=== PATIENT | female | born 1990 | race Caucasian/White ===

== ENCOUNTER → 2016-07-03 | Outpatient (CLI) | payer OTHER ==
[~2016-07-03] MED LIST: FERR1TAB13 PO; FLUO20CA35 PO; PRENTAB26 PO
== END | disposition home or self-care (01) ==
LOC: C.LABSPEC 11:58
PROVIDERS: ATTEND Obstetrics & Gynecology
DX: O09.293 Supervision of pregnancy with other poor reproductive or obstetric history, third trimester (principal)

== ENCOUNTER 2016-07-31 17:16 | Inpatient (IN) | payer OTHER ==
[~2016-07-31] VITALS: Ht 175.3 cm; Wt 91.0 kg
[2016-07-31] MEDS ORDERED: LACTATED RINGER'S 1000ML 1,000 ML IV PRN (18:47)
[2016-07-31] MEDS ORDERED: LACTATED RINGER'S 1000ML 500 ML IV PRN ×2 (18:47→22:29)
[2016-07-31] MEDS ORDERED: OXYTOCIN 30 UNITS/500ML NSS IV PRN (19:00)
[2016-07-31 19:09] VITALS: Ht 175.3 cm; Wt 91.0 kg
[2016-07-31] MEDS ORDERED: PRENTAB26 PO (19:11)
[2016-07-31] MEDS ORDERED: FLUO20CA35 PO (19:11)
[2016-07-31] MEDS ORDERED: PENICILLIN G POTASSIUM IV 6 MU in DEXTROSE 5% 250ML 250 ML IV ONE (19:15)
[2016-07-31 19:16] LABS: MEAN CELL VOLUME 81.5 fL (80-100); MEAN CORPUSCULAR HEMOGLOBIN 26.4 pg (25-34); MEAN CORPUSCULAR HGB CONC 32.4 g/dl (32-36); PLATELET COUNT 232 K/uL (130-400); RED BLOOD COUNT 4.05 M/uL (4.2-5.4); WHITE BLOOD COUNT 7.56 K/uL (4.8-10.8)
[2016-07-31] MEDS: LACTATED RINGER'S 1000ML 1,000 ML IV SCH (19:16)
[2016-07-31] MEDS ORDERED: FENTANYL 2MCG/ML ROPIV 1.25MG/ML 100ML BAG EPI ONE (21:19)
[2016-07-31] MEDS ORDERED: BUPIVACAINE 0.25% 30 ML VIAL ONE (21:19)
[2016-07-31] MEDS ORDERED: FENTANYL CITRATE INJ 50 MCG/1 ML 2 ML VIAL ONE (21:19)
[2016-07-31] MEDS ORDERED: EpHEDrine SULFATE INJ 50 MG/ML AMP ONE (21:19)
[2016-07-31] MEDS ORDERED: EpHEDrine SULFATE INJ 50 MG/ML AMP IV PRN (22:30)
[2016-07-31] MEDS ORDERED: NALOXONE HCL INJ 0.4 MG/1 ML VIAL/CARP IV PRN (22:30)
[2016-07-31] MEDS: PENICILLIN G POTASSIUM IV 3 MU in DEXTROSE 5% 100ML 100 ML IV PRN (22:49)
[2016-07-31] MEDS: FENTANYL 2MCG/ML ROPIV 1.25MG/ML 100ML BAG EPI PRN (23:49)
[2016-08-01] MEDS: LACTATED RINGER'S 1000ML 1,000 ML IV SCH (02:13)
[2016-08-01] MEDS: PENICILLIN G POTASSIUM IV 3 MU in DEXTROSE 5% 100ML 100 ML IV PRN (02:58)
[2016-08-01] MEDS: FENTANYL 2MCG/ML ROPIV 1.25MG/ML 100ML BAG EPI PRN (03:10)
[2016-08-01] MEDS ORDERED: MISOPROSTOL 200 MCG TAB ONE (05:25)
[2016-08-01] MEDS ORDERED: OXYTOCIN 30 UNITS/500ML NSS IV PRN (05:45)
[2016-08-01] MEDS ORDERED: LANOLIN OINT EXT PRN ×2 (05:45)
[2016-08-01] MEDS ORDERED: ACETAMINOPHEN/CODEINE 300/30MG TAB PO PRN ×2 (05:45)
[2016-08-01] MEDS ORDERED: HYDROCORTISONE ACETATE 25 MG SUPP PR PRN (05:45)
[2016-08-01] MEDS ORDERED: MISOPROSTOL 200 MCG TAB PR ONE (05:45)
[2016-08-01] MEDS ORDERED: DIPHTHERIA/TETANUS/PERTUSSIS 0.5 ML SYR/VIAL IM. ONE (05:45)
[2016-08-01] MEDS: CEFAZOLIN IV 2,000 MG in DEXTROSE 5% 50ML 50 ML IV SCH ×3 (05:58→21:43)
[2016-08-01] MEDS ORDERED: OXYTOCIN INJ 20 UNITS in LACTATED RINGER'S 1000ML 1,000 ML IV SCH (06:00)
[2016-08-01] MEDS: IBUPROFEN 600 MG TAB PO PRN ×4 (06:16→22:22)
--- NOTE | 2016-08-01 07:35 | Anesthesia Procedure Note ---
Anesthesia Epidural Removal Nt Date & Time Aug 01, 2016 at 07:35 Vital Signs Pain Intensity: 3.0 Notes Mental Status: alert / awake / arousable, participated in evaluation Nausea / Vomiting: adequately controlled Pain: adequately controlled Airway Patency, RR, SpO2: stable & adequate BP & HR: stable & adequate Hydration State: stable & adequate Neuraxial Anesthesia: was administered, sensory block is resolved Anesthetic Complications: no major complications apparent, pt satisfied with anesthetic care Epidural: removed without complications, with tip intact
--- NOTE | 2016-08-01 07:45 | DELIVERY SUMMARY ---
DATE OF OPERATION: 07/31/2016 DELIVERY NOTE: The patient dilated to complete and pushed to deliver a viable female infant, Apgars 8 and 9 via over second-degree perineal laceration. Mouth and nose bulb suctioned at the perineum and shoulders and body delivered with ease with gentle downward traction. The cried at . Presence of the meconium was noted. Cord was clamped and cut and infant to the warmer for drying and attention. Placenta was delivered spontaneously and intact 3-vessel cord. Hemostasis was inadequate with dilute Pitocin. For that reason, bimanual massage was begun and the uterus was swept x2 for no retained products of conception. After continued bleeding, 800 mcg for rectal Cytotec was administered. The bladder was drained for clear yellow urine of approximately 150 mL. The bleeding began to slow. The laceration was repaired in the usual fashion using 3-0 Vicryl. Cord blood and cord gases were obtained. EBL 600 mL. Mother and baby stable in recovery. I attest to the content of the Intraoperative Record and any orders documented therein. Any exceptions are noted below. TINOD
[2016-08-01 08:10] VITALS: BP 131/66; PULSE 90; TEMP 37.1
[2016-08-01] MEDS: DOCUSATE SODIUM 100 MG CAP PO SCH ×2 (08:49→19:41)
[2016-08-01] MEDS: SUPERCREAM 0.870 % 15GM JAR EXT PRN (11:01)
[2016-08-01] MEDS: BENZOCAINE 20% AER SPR 82.5 GM CAN EXT PRN (11:02)
[2016-08-01 13:00] VITALS: BP 117/67; PULSE 99; TEMP 36.9; O2SAT 100
[2016-08-01] MEDS ORDERED: FLUOXETINE HCL 20 MG CAP PO ONE (13:31)
[2016-08-01 17:00] VITALS: BP 127/87; PULSE 96; TEMP 36.8; O2SAT 99
[2016-08-01 19:30] VITALS: BP 121/79; PULSE 99; TEMP 36.7; O2SAT 97
[2016-08-01] MEDS: ACETAMINOPHEN 325 MG TAB PO PRN (19:42)
[2016-08-01 23:20] VITALS: BP 125/83; PULSE 91; TEMP 36.7; O2SAT 97
[2016-08-02 03:25] VITALS: BP 122/81; PULSE 102; TEMP 36.6; O2SAT 98
[2016-08-02 06:44] LABS: HEMATOCRIT 24.6 % (37-47)
--- NOTE | 2016-08-02 06:57 | Progress Note ---
Subjective Aug 02, 2016. Subjective conversation w/ patient Ambulation: ambulating normally Voiding: no voiding problems Passing Gas: Yes Diet Tolerance: Regular Diet Lochia: Small Feeding Type: Breast Feeding Review of Systems Constitutional: No chills, No fever Respiratory: No cough, No shortness of breath Cardiac: No chest pain Abdomen: No nausea, No pain Objective Vital Signs Date Time Temp Pulse Resp B/P Pulse Ox O2 Delivery O2 Flow Rate FiO2 08/02/16 03:25 36.6 102 16 122/81 98 Room Air 08/01/16 23:20 36.7 91 16 125/83 97 Room Air 08/01/16 23:20 97 Room Air 08/01/16 19:30 36.7 99 16 121/79 97 Room Air 08/01/16 17:00 36.8 96 16 127/87 99 Room Air 08/01/16 17:00 99 Room Air 08/01/16 13:00 36.9 99 16 117/67 100 Room Air 08/01/16 08:10 37.1 90 18 131/66 Room Air 08/01/16 08:10 Room Air Physical Exam General Appearance: WELL-APPEARING Respiratory/Chest: lungs clear Cardiovascular: regular rate, rhythm Abdomen: normal bowel sounds Fundus: Firm, Non-Tender, Relation to Umbilicus (2 cm below umbilicus) Laboratory Results Last 24 Hours Test 08/02/16 06:30 Hemoglobin 8.2 g/dL Hematocrit 24.6 % Assessment and Plan Post- Day#: 1 Continue Routine Care: 26 year old female day 1 post Group B Strep positive, Received antibiotics Analgesia PRN, Escalate diet, Encourage ambulation CONTINUE POST CARE Resident Physician Supervision Note: I interviewed and examined the patient. Discussed with Dr. Lakhani and agree with findings and plan as documented in the note. Any exceptions or clarifications are listed here: [None] Documented By: Dov Padilla
[2016-08-02 08:00] VITALS: BP 127/84; PULSE 90; TEMP 36.9
[2016-08-02] MEDS: DOCUSATE SODIUM 100 MG CAP PO SCH ×2 (08:16→20:00)
[2016-08-02] MEDS: FLUOXETINE HCL 20 MG CAP PO SCH (08:16)
[2016-08-02 12:50] VITALS: BP 133/84; PULSE 115; TEMP 36.8; O2SAT 99
[2016-08-02] MEDS: IBUPROFEN 600 MG TAB PO PRN ×2 (13:08→23:30)
[2016-08-02] MEDS: ACETAMINOPHEN 325 MG TAB PO PRN (16:19)
[2016-08-02 16:30] VITALS: BP 125/77; PULSE 101; TEMP 36.7; O2SAT 97; O2SAT 98
[2016-08-02] MEDS: BENZOCAINE 20% AER SPR 82.5 GM CAN EXT PRN (23:32)
[2016-08-02 23:35] VITALS: BP 139/86; PULSE 93; TEMP 36.6
[2016-08-03] MEDS: FLUOXETINE HCL 20 MG CAP PO SCH (07:49)
[2016-08-03] MEDS: DOCUSATE SODIUM 100 MG CAP PO SCH (07:49)
--- NOTE | 2016-08-03 07:52 | Progress Note ---
Subjective Aug 03, 2016. Subjective conversation w/ patient, physical exam Ambulation: ambulating normally Voiding: no voiding problems Passing Gas: Yes Diet Tolerance: Regular Diet Lochia: Small Feeding Type: Breast Feeding Pain: 1 Review of Systems Constitutional: No chills, No fever Respiratory: No cough, No shortness of breath Cardiac: No chest pain, No palpitations Abdomen: No nausea, No pain, No vomiting Objective Vital Signs Date Time Temp Pulse Resp B/P Pulse Ox O2 Delivery O2 Flow Rate FiO2 08/02/16 23:35 36.6 93 16 139/86 Room Air 08/02/16 23:35 Room Air 08/02/16 16:30 36.7 101 20 125/77 97 Room Air 08/02/16 16:30 98 Room Air 08/02/16 12:50 36.8 115 20 133/84 99 Room Air 08/02/16 08:00 Room Air 08/02/16 08:00 36.9 90 18 127/84 Room Air Physical Exam General Appearance: WELL-APPEARING Respiratory/Chest: chest non-tender, lungs clear Cardiovascular: regular rate, rhythm, no murmur Abdomen: normal bowel sounds Fundus: Firm, Non-Tender, Relation to Umbilicus (2 cm above and left lateral to umbilicus) Extremities: normal range of motion, non-tender Assessment and Plan Post- Day#: 2 Continue Routine Care: 26 F s/p Day 2 - Hgb reviewed 8.2 today (will supplement with iron) - Blood type: A+, GBS + (received AB), rubella immune - Pt doing well clinically - Encourage ambulation, monitor and control pain with motrin PRN, Resume regular diet, monitor lochia - Encourage breast feeding - Patient counselled on d/c instructions - DISCHARGE TODAY
[2016-08-03] MEDS ORDERED: FERR1TAB13 PO (07:56)
--- NOTE | 2016-08-03 07:57 | Discharge Instructions ---
Discharge Instructions Admission Reason for Admission: Induction Discharge Discharge Diagnosis / Problem: Spontaneous Vaginal Delivery Discharge Goals Goal(s): Routine recovery after delivery Medications Continue Dispensed Medications: supercream, dermaplast, tucks, lansinoh Activity Recommendations Activity Limitations: per Instructions/Follow-up section . Instructions / Follow-Up Instructions / Follow-Up ACTIVITY RECOMMENDATIONS: * Gradual return to full activity over the next 2-3 weeks. * No lifting - nothing heavier than baby over the next 2-3 weeks. * Do not engage in vigorous exercise, sexual activity or sports until cleared by your physician. * Do not drive or operate any motorized equipment until cleared by your physician. * You may shower/bathe daily. MEDICATIONS: For discomfort or pain, you may use Acetaminophen (Tylenol), Ibuprofen (Advil), or Naproxen (Aleve) following the package directions. For constipation you may use Colace following the package directions. BREAST CARE: If you are not breast feeding: * Wear a supportive bra 24 hours a day for one to two weeks. * Avoid stimulating your breasts and nipples as much as possible during the first few weeks after delivery. * When taking a shower, have the warm water hit your back, not breasts. * When your breasts feel full, apply ice packs. Usually three to four times a day helps ease the discomfort. * Take a mild pain medication (Tylenol / Motrin) when you are uncomfortable. If breast feeding: * Use breast milk to lubricate nipples. Lansinoh cream may be used for sore nipples. You do not need to remove cream prior to breast feeding. If using a different brand of cream, check the label for directions regarding removal of cream prior to nursing. * Wear a supportive bra. * If having problems with breasts or breast feeding, call a product safety consultant or your health care provider. EPISIOTOMY CARE: After delivery, if you have an episiotomy (stitches), the following steps will ease discomfort and aid healing. * For the first 24 hours after delivery, place ice packs next to your episiotomy to help reduce swelling. * After the first 24 hour-period, sitz baths, either portable or in the tub, are suggested. A shower with a shower arm sprayed over the episiotomy may be comforting. * Tracy care should be done after each voiding and bowel movement. Squirt warm water from a plastic bottle over the perineum (region of the body between the anus and urinary opening) and pat dry. * Use Dermoplast to ease discomfort. Shake container. [place] directly over the episiotomy. Place a Tucks on a clean sanitary pad next to your episiotomy. SPECIAL CARE INSTRUCTIONS: When you are discharged from the hospital, it is important for you to follow the instructions listed below: * During the first week at home, you should be able to care for yourself and your baby. In addition, the usual light household activities are encouraged. * Limit your activities to the way you feel. Do not try to clean the house or move furniture. Be sensible. * If you actively engage in sports and have done so up until the time of your delivery, you may resume these activities as soon as you feel able. This may take up to one month or even longer. Use good judgment. * Continue to take your vitamins for at least six weeks after the of your baby. * Your diet need not be limited unless you were on a special diet before your delivery. Breast-feeding mothers need around 2500 calories per day and at least 64-80 ounces of fluid per day (8 to 10 glasses). * You should eat foods from the four major food groups. Crash diets or fad diets are to be avoided. Eating lean meats, fresh fruits and vegetables, low-fat dairy products, high fiber foods and a regular exercise program, will help you get back to your pre- weight without putting your health at risk. * Constipation is sometimes a problem after delivery. Take a mild laxative as needed. If breast feeding, Milk of Magnesia is acceptable to use. You may use a suppository or Fleets enema if no episiotomy. * A daily shower or tub bath is suggested. Be sure to thoroughly and gently dry the perineum. * A bloody vaginal discharge will usually continue until around four weeks post . A small amount of bleeding may continue for as long as six weeks. Vaginal discharge changes from the bright red bleeding after delivery to pink then brownish and finally yellowish-pink before becoming white and disappearing. * Bleeding may increase with activity. Your first period may come in 4-8 weeks. If you are breast feeding, your period may be delayed even longer. * Hurt (sex) can begin whenever both you and your partner feel comfortable and do not have any form of genital infection. It is recommended that you wait at least six weeks for internal and external healing to occur. If you have questions, please talk to your health care practitioner. A condom should be used to prevent infection and . * Foreplay, gentle intercourse and lubrication is very important the first several times to prevent pain. A water-based lubricant such as K-Y jelly or Astroglide may be used. * If you have RH negative blood and your baby is RH positive, you will receive RHOGAM by injection prior to discharge. The nurse will give you a card to keep with you that has the date and place that you received RHOGAM after delivery. * During your care, you had a Rubella screen done to check for the presence of rubella antibodies in your blood. If your test was negative, you will receive a Rubella vaccine prior to discharge. This vaccine may cause a fever, soreness at the injection site and flu-like symptoms. If these symptoms persist, notify your health care practitioner. is not advised for one month after a Rubella vaccine. * Verbalizes understanding of car seat law as reviewed with patient nursing. * Car Seat hand-out given and reviewed with patient by nursing. * Shaken baby information reviewed with patient by nursing. Call you doctor if: * Heavy bleeding (saturating several pads an hour) or passing clots the size of your fist. * A fever >101 degrees F (38.3 degrees C) on two occasions four hours apart and /or chills. * Unusual pain in the pelvic or vaginal areas. * "Baby Blues" lasting longer than two weeks. If you have any questions or concerns, call your health care practitioner at . FOLLOW UP VISIT: * Please call the office at to schedule a 6 week examination. It is important you keep this appointment. It is important for you to make arrangements for either yearly or twice yearly check-ups thereafter. Current Hospital Diet Patient's current hospital diet: Regular OB Diet Discharge Diet Recommended Diet: Regular OB Diet Pending Studies Studies pending at discharge: no Medical Emergencies . Who to Call and When: Medical Emergencies: If at any time you feel your situation is an emergency, please call 911 immediately. . Non-Emergent Contact Non-Emergency issues call your: Primary Care Provider, Project/Production Manager Imaging . . "Provider Documentation" section prepared by Mariusz Lakhani. VTE Core Measure Inpt VTE Proph given/why not?: Treatment not indicated
[2016-08-03 08:00] VITALS: BP 127/78; PULSE 98; TEMP 36.6; O2SAT 96
[2016-08-03] MEDS: IBUPROFEN 600 MG TAB PO PRN (11:13)
[2016-08-03] MEDS: SUPERCREAM 0.870 % 15GM JAR EXT PRN (12:38)
[2016-08-03] MEDS: BENZOCAINE 20% AER SPR 82.5 GM CAN EXT PRN (12:38)
[2016-08-03 16:00] VITALS: BP_DIAS 78; PULSE 98; TEMP 36.6
== END 2016-08-03 16:00 | disposition home or self-care (01) | DRG 775 ==
LOC: C.LD 17:16 → C.OBG 08-01 08:30
PROVIDERS: ADMIT Obstetrics & Gynecology; ATTEND Obstetrics & Gynecology
PROC: 0KQM0ZZ Repair Perineum Muscle, Open Approach (ICD-10-PCS; principal; 2016-08-01)
PROC: 10E0XZZ Delivery of Products of Conception, External Approach (ICD-10-PCS; 2016-08-01)
DX: O70.1 Second degree perineal laceration during delivery (principal); Z37.0 Single live birth; O99.820 Streptococcus B carrier state complicating pregnancy; Z3A.40 40 weeks gestation of pregnancy

== ENCOUNTER → 2016-07-31 | Outpatient (CLI) | payer OTHER ==
--- NOTE | 2016-07-31 16:50 | DIAGNOSTIC IMAGING REPORT ---
biophysical profile BIO PROF W/O NST -SINGLE CLINICAL HISTORY: O28.1 nonreactive stress test TECHNIQUE: Ultrasound COMPARISON STUDY: None FINDINGS: Biophysical profile 4 out of possible 8. Amniotic fluid index is 13 cm. heart rate 146 bpm. Movement is noted. Tone and breathing are not appreciated. IMPRESSION: Biophysical profile 4 out of a possible 8 Electronically signed by: Kofi Ureña M.D. 07/31/2016 4:49 PM Dictated Date/Time: 07/31/2016 4:47 PM
== END | disposition home or self-care (01) ==
LOC: C.ULTR 15:45
PROVIDERS: ATTEND Obstetrics & Gynecology
DX: O28.1 Abnormal biochemical finding on antenatal screening of mother (principal); O28.8 Other abnormal findings on antenatal screening of mother; Z3A.00 Weeks of gestation of pregnancy not specified

== ENCOUNTER → 2016-09-10 | Outpatient (CLI) | payer OTHER | END | disposition home or self-care (01) | LOC: C.PAPS 15:13 | PROVIDERS: ATTEND Obstetrics & Gynecology | DX: Z12.4 Encounter for screening for malignant neoplasm of cervix (principal) ==

== ENCOUNTER → 2016-12-16 | Outpatient (CLI) | payer OTHER ==
[2016-12-16 18:43] LABS: BASO % 0.3 %; BASO ABS # 0.02 K/uL (0-0.2); COMPLETE YES; EOS % 1.7 %; HEMATOCRIT 40.4 % (37-47); IG% 0.2 %; LYMPH % 25.9 %; LYMPH ABS # 1.64 K/uL (1.2-3.4); MEAN CELL VOLUME 85.1 fL (80-100); MEAN CORPUSCULAR HEMOGLOBIN 29.1 pg (25-34); MEAN CORPUSCULAR HGB CONC 34.2 g/dl (32-36); MEAN PLATELET VOLUME 10.1 fL (7.4-10.4); MONO % 5.2 %; NEUT % 66.7 %; PLATELET COUNT 244 K/uL (130-400); RED BLOOD COUNT 4.75 M/uL (4.2-5.4); WHITE BLOOD COUNT 6.32 K/uL (4.8-10.8)
[2016-12-16 19:09] LABS: ALT/SGPT 16 U/L (12-78); BLOOD UREA NITROGEN 12 mg/dl (7-18); BUN/CREATININE RATIO 20.9 (10-20); C-REACTIVE PROTEIN < 0.29 mg/dl (0-0.29); CALCIUM 8.8 mg/dl (8.5-10.1); CARBON DIOXIDE 27 mmol/L (21-32); CHLORIDE 107 mmol/L (98-107); CREATININE 0.56 mg/dl (0.60-1.20); GLUCOSE 97 mg/dl (70-99); SODIUM 140 mmol/L (136-145)
[2016-12-16 19:19] LABS: ALKALINE PHOSPHATASE 161 U/L (45-117); AST/SGOT 14 U/L (15-37); RHEUMATOID FACTOR < 10.0 U/mL (0-15)
[2016-12-16 19:32] LABS: LYME DISEASE AB IGG NEG (NEG); LYME DISEASE AB IGM NEG (NEG)
--- NOTE | 2016-12-20 10:43 | CODING QUERY MEDICAL NECESSITY ---
CQSUPPORTING DIAGNOSIS NEEDED A supporting diagnosis is required for the test/procedure performed on this patient in order for us to be reimbursed by the patient's insurance. Please provide a supporting diagnosis for the following test/procedure listed below next to the test name along with your signature. *If there is no additional diagnosis for this patient that would support the following test/procedure please document that below next to the test/procedure. Test(s)/Procedure(s) that require a supporting diagnosis: DOS 12/16/16 VITAMIN D TEST Provider Signature: Date: Thank you Raeann Spann Health Information Management Once completed, please kindly fax back to [phone] For questions please call [phone]
== END | disposition home or self-care (01) ==
LOC: C.LAB 17:55
PROVIDERS: ATTEND Nurse Practitioner Family
DX: M25.50 Pain in unspecified joint (principal)

== ENCOUNTER → 2017-01-02 | Outpatient (CLI) | payer OTHER | END | disposition home or self-care (01) | LOC: C.LAB 13:50 | PROVIDERS: ATTEND Family Medicine | DX: M79.641 Pain in right hand (principal); M25.50 Pain in unspecified joint ==

== ENCOUNTER → 2017-01-02 | Outpatient (CLI) | payer OTHER ==
--- NOTE | 2017-01-02 09:04 | DIAGNOSTIC IMAGING REPORT ---
RIGHT HAND MIN 3 VIEWS CLINICAL HISTORY: Right hand pain. Polyarthralgia. COMPARISON: None. DISCUSSION: The bony mineralization appears normal. No fractures or dislocations are visualized. There are no erosive or destructive changes. IMPRESSION: 1. No fractures identified 2. No evidence of erosive disease. Electronically signed by: Albert Mix M.D. 01/02/2017 9:03 AM Dictated Date/Time: 01/02/2017 9:02 AM
--- NOTE | 2017-01-02 09:05 | DIAGNOSTIC IMAGING REPORT ---
LEFT HAND MIN 3 VIEWS CLINICAL HISTORY: Left hand pain COMPARISON: None. DISCUSSION: No fractures are visualized. There are no erosive or destructive changes. IMPRESSION: No evidence of fracture. No evidence of erosive disease. Electronically signed by: Albert Mix M.D. 01/02/2017 9:04 AM Dictated Date/Time: 01/02/2017 9:03 AM
== END | disposition home or self-care (01) ==
LOC: C.RDSM 08:55
PROVIDERS: ATTEND Family Medicine
DX: M79.641 Pain in right hand (principal); M25.50 Pain in unspecified joint

== ENCOUNTER 2018-11-18 03:32 | Inpatient (IN) ==
[2018-11-18] MEDS ORDERED: OXYTOCIN 30 UNITS/500 ML BAG IV PRN ×2 (04:00→08:31)
[2018-11-18] MEDS ORDERED: PENICILLIN G POTASSIUM 6 MU in DEXTROSE 5% 250 ML IV STA (04:04)
[2018-11-18] MEDS ORDERED: PENICILLIN G POTASSIUM 3 MU in DEXTROSE 5% 100 ML IV PRN (04:04)
[2018-11-18] MEDS: LACTATED RINGER'S 1,000 ML IV PRN ×2 (04:15→05:44)
[2018-11-18] MEDS ORDERED: ePHEDrine sulfate 50 MG/ML AMP ONE (04:19)
[2018-11-18] MEDS ORDERED: BUPIVACAINE 0.25% 30 ML VIAL ONE (04:19)
[2018-11-18] MEDS ORDERED: fentaNYL citrate 100 MCG/2 ML VIAL ONE (04:20)
[2018-11-18] MEDS ORDERED: fentaNYL 2MCG/ML ROPIV 1.25MG/ML 100 ML BAG EPI ONE (04:20)
[2018-11-18 04:30] LABS: Hematocrit (blood only) 34.6 % (37-47); Hemoglobin 11.7 g/dL (12.0-16.0); Mean Platelet Volume 9.9 fL (7.4-10.4); Platelet Count 190 K/uL (130-400); RDW Coefficient of Variation 15.2 % (11.5-14.5); RDW Standard Deviation 46.4 fL (36.4-46.3); Red Blood Count 4.12 M/uL (4.2-5.4); White Blood Count 6.54 K/uL (4.8-10.8)
[2018-11-18 04:31] LABS: Mean Corpuscular Hgb Conc 33.8 g/dL (32-36)
--- NOTE | 2018-11-18 05:16 | Anesthesiology Consultation ---
Date of Service November 18, 2018 Assessment & Plan Chart Review Chart Review: Acceptable Risk for Labor Epidural Consults Requested none History Height/Weight Height: 5 ft 9 in Weight: 86.183 kg Allergies Allergy/AdvReac Type Severity Reaction Status Date / Time milk AdvReac Unknown GI SYMPTOMS Verified 11/17/18 00:43 Medications Home Medications Medication Instructions Recorded Confirmed Last Taken ferrous fumarate-vitamin C 1 tab PO DAILY 11/18/18 11/18/18 11/17/18 fluoxetine 20 mg PO DAILY 11/18/18 11/18/18 11/17/18 vit-iron fum-folic ac 1 tab PO DAILY 11/18/18 11/18/18 11/17/18 [ Vitamin] Active Medications Generic Name Dose Route Start Last Admin Trade Name Freq PRN Reason Stop Dose Admin Lactated Ringer's 1,000 mls @ 125 mls/hr 11/18/18 04:00 11/18/18 04:15 Lr IV 11/20/18 03:59 999 mls/hr .Q8H PRN Administration L&D Protocol Protocol Past Medical History Medical History Anxiety and depression taking prozac H/O wisdom tooth extraction at age 16 Past Family History Family History Grandmother (Paternal) Diabetes Grandmother (Maternal) Diabetes Grandmother (Paternal) Myocardial infarction Past Surgical History Surgical History History of cholecystectomy 12/2017 Social History Smoking Status: Never smoker Hx Alcohol Use: No Hx Substance Use: No Physical Exam Vital Signs Last Vital Signs Temp 36.8 C 11/18/18 03:48 Pulse 93 H 11/18/18 05:14 Resp 18 11/18/18 03:48 BP 120/69 11/18/18 05:14 Pulse Ox 97 11/18/18 05:10
[2018-11-18] MEDS ORDERED: DiphenhydrAMINE HCL 50 MG/ML VIAL IV PRN (05:19)
[2018-11-18] MEDS ORDERED: ePHEDrine sulfate 50 MG/ML AMP IV PRN (05:19)
[2018-11-18] MEDS ORDERED: fentaNYL 2MCG/ML ROPIV 1.25MG/ML 100 ML BAG EPI PRN (05:19)
[2018-11-18] MEDS ORDERED: NALOXONE HCL 0.4 MG/1 ML VIAL/CARP IV PRN (05:19)
[2018-11-18] MEDS ORDERED: NALBUPHINE HCL INJ 10 MG/ML AMP IV PRN (05:19)
[2018-11-18] MEDS ORDERED: NALOXONE HCL 1 MG in SODIUM CHLORIDE 0.9% 1000ML 1,000 ML IV PRN (05:19)
--- NOTE | 2018-11-18 06:11 | History & Physical Report ---
Date of Service November 18, 2018 Assessment & Plan (1) Supervision of normal intrauterine in multigravida in [facility]: -Patient in active labor -Tracing category 1- -patient requesting epidural anticipate vaginal delivery - History of Present Illness Chief Complaint: Labor check Primary Care Provider: Nishant Pearce III, AMINA The patient is a 28-year-old 3 para 1 with an EDC of 2 due at 40+ weeks gestational age who presented to labor and delivery in active labor. Patient states the contractions began early in the morning on day of admission, she denies rupture membranes or vaginal bleeding. The patient has had a benign course her blood type is O+ antibody negative rubella immune she had GBS in her urine at her new OB visit patient had negative cell free DNA screening normal 1 hour Glucola x2 Allergies Allergy/AdvReac Type Severity Reaction Status Date / Time milk AdvReac Unknown GI SYMPTOMS Verified 11/17/18 00:43 Home Medications Home Medications Medication Instructions Recorded Confirmed Type ferrous fumarate-vitamin C 1 tab PO DAILY 11/18/18 11/18/18 History fluoxetine 20 mg PO DAILY 11/18/18 11/18/18 History vit-iron fum-folic ac 1 tab PO DAILY 11/18/18 11/18/18 History [ Vitamin] Patient History Medical History Anxiety and depression taking prozac H/O wisdom tooth extraction at age 16 Surgical History History of cholecystectomy 12/2017 Family History Grandmother (Paternal) Diabetes Grandmother (Maternal) Diabetes Grandmother (Paternal) Myocardial infarction Social History Preferred Language: Tajik Communication Ability: Effective Industrial Coffee Grinder Required: No Beliefs That Will Affect Care: None marital status: Current Living Situation: Spouse and Family Other Information That Helps Us Care for You: No Feels Safe at Home: Yes Smoking Status: Never smoker Hx Alcohol Use: No Hx Substance Use: No Physical Exam Constitutional: WD/WN, vitals as above Respiratory: Auscultation: lungs clear to auscultation bilaterally Cardiovascular: RRR, no murmur, no edema Extremities: no calf tenderness Gastrointestinal (Abdomen): Gravid, vertex, positive heart tones, estimated weight of 8 pounds Genitourinary: Cervix, 6 cm dilated -1 station (per nursing ) Results & Data Vital Signs (Past 12 Hours) Vital Signs Temp Pulse Resp BP Pulse Ox 11/18/18 06:05 81 96 11/18/18 06:00 94 H 98 11/18/18 05:55 83 125/64 97 11/18/18 05:52 102 H 91 11/18/18 05:50 86 134/67 97 11/18/18 05:45 96 H 134/80 98 11/18/18 05:41 83 133/75 11/18/18 05:40 85 98 11/18/18 05:36 84 123/69 11/18/18 05:35 84 98 11/18/18 05:30 81 121/74 97 11/18/18 05:27 83 119/67 11/18/18 05:25 88 97 11/18/18 05:20 90 120/67 98 11/18/18 05:18 85 126/71 11/18/18 05:16 96 H 131/76 11/18/18 05:15 99 H 98 11/18/18 05:14 93 H 120/69 11/18/18 05:12 88 114/64 11/18/18 05:10 86 116/68 97 11/18/18 05:08 89 111/66 11/18/18 05:06 89 122/73 11/18/18 05:05 94 H 98 11/18/18 05:04 89 124/77 11/18/18 05:02 95 H 134/76 11/18/18 05:00 95 H 126/78 97 11/18/18 04:56 100 H 89 L 11/18/18 04:55 105 H 99 11/18/18 04:50 95 H 99 11/18/18 04:46 90 137/74 11/18/18 04:45 97 H 99 11/18/18 03:52 109 H 137/90 11/18/18 03:48 36.8 C 18
--- NOTE | 2018-11-18 07:29 | Labor Progress Brief Note ---
Date of Service November 18, 2018 Subjective Can't feel anything Assessment & Plan (1) Supervision of normal intrauterine in multigravida in third trimester: - tracing Cat II - Patient with no sensation to push - will back down epidural rte from 10 to 7 - will await for sensation before beginning 2nd stage Physical Exam Genitourinary: Complete/(+)2 with ctx Results & Data Vital Signs (Past 12 Hours) Vital Signs Temp Pulse Resp BP Pulse Ox 11/18/18 07:25 81 97 11/18/18 07:20 85 97 11/18/18 07:15 92 H 97 11/18/18 07:12 77 118/58 L 11/18/18 07:10 76 96 11/18/18 07:05 76 96 11/18/18 07:00 84 96 11/18/18 06:56 67 116/55 L 11/18/18 06:55 72 96 11/18/18 06:50 76 96 11/18/18 06:45 72 96 11/18/18 06:40 78 124/66 96 11/18/18 06:35 79 97 11/18/18 06:30 70 96 11/18/18 06:25 72 116/60 96 11/18/18 06:20 79 97 11/18/18 06:15 83 97 11/18/18 06:11 74 114/58 L 11/18/18 06:10 78 96 11/18/18 06:05 81 96 11/18/18 06:00 36.7 C 94 H 18 98 11/18/18 05:55 83 125/64 97 11/18/18 05:52 102 H 91 11/18/18 05:50 86 134/67 97 11/18/18 05:45 96 H 134/80 98 11/18/18 05:41 83 133/75 11/18/18 05:40 85 98 11/18/18 05:36 84 123/69 11/18/18 05:35 84 98 11/18/18 05:30 81 121/74 97 11/18/18 05:27 83 119/67 11/18/18 05:25 88 97 11/18/18 05:20 90 120/67 98 11/18/18 05:18 85 126/71 11/18/18 05:16 96 H 131/76 11/18/18 05:15 99 H 98 11/18/18 05:14 93 H 120/69 11/18/18 05:12 88 114/64 11/18/18 05:10 86 116/68 97 11/18/18 05:08 89 111/66 11/18/18 05:06 89 122/73 11/18/18 05:05 94 H 98 11/18/18 05:04 89 124/77 11/18/18 05:02 95 H 134/76 11/18/18 05:00 95 H 126/78 97 11/18/18 04:56 100 H 89 L 11/18/18 04:55 105 H 99 11/18/18 04:50 95 H 99 11/18/18 04:46 90 137/74 11/18/18 04:45 97 H 99 11/18/18 03:52 109 H 137/90 11/18/18 03:48 36.8 C 18
[2018-11-18] MEDS ORDERED: ACETAMINOPHEN W/CODEINE #3 1 TAB PO PRN (08:36)
[2018-11-18] MEDS ORDERED: BENZOCAINE 20% AER SPR 82.5 GM CAN EXT PRN (08:36)
[2018-11-18] MEDS ORDERED: HYDROCORTISONE ACETATE 25 MG SUPP PR PRN (08:36)
[2018-11-18] MEDS ORDERED: DIPHTHERIA/TETANUS/PERTUSSIS 0.5 ML SYR/VIAL IM ONE (08:36)
[2018-11-18 08:54] LABS: CO2 Cord Arterial Blood 61 mmHg (39.1-73.5); HCO3 Cord Arterial Blood 25 mmol/L (19.7-28.5); pH Cord Arterial Blood 7.23 (7.1-7.38)
[2018-11-18 08:59] LABS: Base Excess Cord Venous Blood -2.9 mEq/L (-7.7-1.9); Cord Venous Blood HCO3 24 mmol/L (18.4-26.8); Cord Venous Blood PCO2 47 mmHg (30.4-57.2); Cord Venous Blood PO2 31 mmHg (14.1-43.3); Cord Venous Blood pH 7.32 (7.20-7.44)
--- NOTE | 2018-11-18 10:22 | Delivery Summary ---
DATE OF OPERATION: 11/18/2018 DELIVERY NOTE FINDINGS: Viable female with Apgars of 7 and 9. Arterial and venous cord gases pending. Nuchal cord x1 reduced on the perineum. Meconium noted at delivery with a vigorous cry at terminating meconium resuscitation. Midline second-degree laceration repaired with 4-0 Vicryl in routine fashion. Estimated blood loss 300 mL LABOR COURSE: The patient is a 28-year-old 3, para 2 with an EDC of 15 November at 40+ weeks gestational age who presented to labor and delivery in active labor. The patient states the contractions began early in the morning on day of admission. She denied rupture of membranes or vaginal bleeding. The patient has had a benign course. Her blood type is O positive, antibody negative, rubella immune. She had GBS in her urine at her new OB visit and a negative cell-free DNA screening, normal 1 hour Glucola x2. Upon admission, the patient was 6 cm dilated with bulging membranes in active labor. Anesthesia was consulted and an epidural was placed. The patient had spontaneous rupture of membranes and the nurse caring for her thought the patient was fully dilated and began her second stage. On my examination, the patient was still 8 cm with a forebag, which was ruptured with light meconium. Second stage was delayed to allow full dilatation. Over the next hour and a half, the patient progressed to full dilatation; however, she could not feel her contractions because of her epidural. Her epidural rate was decreased from 10 to 7 and her sensation returned. The patient pushed for approximately 15 minutes delivering the viable female . Initially there was not a respiratory effort, so the umbilical cord was cut immediately. After cutting the umbilical cord, baby gave a good vigorous cry, terminating meconium resuscitation. Cord gases, cord blood samples obtained. Placenta was delivered spontaneously. Inspection of the perineum showed a midline second-degree laceration, which was repaired with 4-0 Vicryl in routine fashion. Estimated blood loss was 300 mL. I attest to the content of the Intraoperative Record and any orders documented therein. Any exception s are noted below.
[2018-11-18] MEDS: FLUOXETINE HCL 20 MG CAP PO SCH (10:24)
[2018-11-18] MEDS: FERROUS SULFATE 325 MG TAB PO SCH (10:24)
[2018-11-18] MEDS: DOCUSATE SODIUM 100 MG CAP PO SCH ×2 (10:24→20:45)
[2018-11-18] MEDS: PRENATAL VITAMIN 1 TAB PO SCH (10:24)
--- NOTE | 2018-11-18 11:23 | Anesthesia Procedure Note ---
Date of Service November 18, 2018 Anesthesia Post Epidural Note Vital Signs Vital Signs: Temp Pulse Resp BP Pulse Ox 11/18/18 10:25 92 H 121/60 11/18/18 10:11 88 120/59 L 11/18/18 09:56 96 H 125/56 L 11/18/18 09:41 95 H 114/60 11/18/18 09:26 90 113/58 L 11/18/18 09:11 85 112/60 11/18/18 08:56 80 107/58 L 11/18/18 08:41 80 120/63 11/18/18 08:26 86 121/67 11/18/18 08:20 97 H 96 11/18/18 08:15 93 H 95 11/18/18 08:11 95 H 129/70 11/18/18 08:10 97 H 95 11/18/18 08:09 118 H 93 11/18/18 08:05 123 H 97 11/18/18 08:00 98 H 96 11/18/18 07:55 94 H 98 11/18/18 07:50 112 H 98 11/18/18 07:45 87 97 11/18/18 07:41 88 111/68 11/18/18 07:40 86 98 11/18/18 07:35 88 98 11/18/18 07:30 85 98 11/18/18 07:28 86 130/74 11/18/18 07:25 81 97 11/18/18 07:20 85 97 11/18/18 07:15 92 H 97 11/18/18 07:12 77 118/58 L 11/18/18 07:10 76 96 11/18/18 07:05 76 96 11/18/18 07:00 84 96 11/18/18 06:56 67 116/55 L 11/18/18 06:55 72 96 11/18/18 06:50 76 96 11/18/18 06:45 72 96 11/18/18 06:40 78 124/66 96 11/18/18 06:35 79 97 11/18/18 06:30 70 96 11/18/18 06:25 72 116/60 96 11/18/18 06:20 79 97 11/18/18 06:15 83 97 11/18/18 06:11 74 114/58 L 11/18/18 06:10 78 96 06/05/19 06:05 81 96 11/18/18 06:00 36.7 C 94 H 18 98 11/18/18 05:55 83 125/64 97 11/18/18 05:52 102 H 91 11/18/18 05:50 86 134/67 97 11/18/18 05:45 96 H 134/80 98 11/18/18 05:41 83 133/75 11/18/18 05:40 85 98 11/18/18 05:36 84 123/69 11/18/18 05:35 84 98 11/18/18 05:30 81 121/74 97 11/18/18 05:27 83 119/67 11/18/18 05:25 88 97 11/18/18 05:20 90 120/67 98 11/18/18 05:18 85 126/71 11/18/18 05:16 96 H 131/76 11/18/18 05:15 99 H 98 11/18/18 05:14 93 H 120/69 11/18/18 05:12 88 114/64 11/18/18 05:10 86 116/68 97 11/18/18 05:08 89 111/66 11/18/18 05:06 89 122/73 11/18/18 05:05 94 H 98 11/18/18 05:04 89 124/77 11/18/18 05:02 95 H 134/76 11/18/18 05:00 95 H 126/78 97 11/18/18 04:56 100 H 89 L 11/18/18 04:55 105 H 99 11/18/18 04:50 95 H 99 11/18/18 04:46 90 137/74 11/18/18 04:45 97 H 99 11/18/18 03:52 109 H 137/90 11/18/18 03:48 36.8 C 18 Pain Intensity Bilateral Abdomen: Pain Intensity: 2 Notes Mental Status: alert / awake / arousable Patient Amnestic to Procedure: No Nausea / Vomiting: adequately controlled Pain: adequately controlled Airway Patency, RR, SpO2: stable & adequate BP & HR: stable & adequate Hydration State: stable & adequate Anesthetic Complications: no major complications apparent Epidural: Removed without complications and With tip intact
[2018-11-18] MEDS: IBUPROFEN 600 MG TAB PO PRN ×2 (12:06→17:44)
[2018-11-18] MEDS: SUPERCREAM 0.870% 15 GM JAR EXT PRN (12:06)
[2018-11-19] MEDS: FAMOTIDINE 20 MG TAB PO SCH ×3 (02:10→21:02)
[2018-11-19] MEDS: IBUPROFEN 600 MG TAB PO PRN ×4 (04:23→21:02)
[2018-11-19 06:33] LABS: Hematocrit (blood only) 33.2 % (37-47); Hemoglobin 10.7 g/dL (12.0-16.0); Mean Corpuscular Hgb Conc 32.2 g/dL (32-36); Mean Corpuscular Volume 84.5 fL (80-100); Mean Platelet Volume 10.1 fL (7.4-10.4); Platelet Count 186 K/uL (130-400); RDW Coefficient of Variation 15.2 % (11.5-14.5); RDW Standard Deviation 47.3 fL (36.4-46.3); Red Blood Count 3.93 M/uL (4.2-5.4); White Blood Count 10.57 K/uL (4.8-10.8)
[2018-11-19] MEDS: PRENATAL VITAMIN 1 TAB PO SCH (08:27)
[2018-11-19] MEDS: FERROUS SULFATE 325 MG TAB PO SCH (08:27)
[2018-11-19] MEDS: DOCUSATE SODIUM 100 MG CAP PO SCH ×2 (08:28→21:03)
[2018-11-19] MEDS: FLUOXETINE HCL 20 MG CAP PO SCH (08:31)
[2018-11-19] MEDS ORDERED: ONDANSETRON 4 MG OD TAB PO PRN (08:57)
--- NOTE | 2018-11-19 08:57 | Obstetrical Progress Note ---
Date of Service November 19, 2018 Assessment & Plan (1) Supervision of normal intrauterine in multigravida in [facility]: Day 1 s/p Reporting some nausea but otherwise doing well Subjective Ambulation: ambulating normally Voiding: no voiding problems Diet Tolerance:: regular diet Lochia:: Moderate Feeding Type:: breast feeding Current Pain Level(1-10): 3 Reporting nausea without vomiting Physical Exam Vital Signs (Past 24 Hours) Last Vital Signs Temp 36.8 C 11/19/18 04:15 Pulse 81 11/19/18 04:15 Resp 16 11/19/18 04:15 BP 143/82 H 11/19/18 04:15 Pulse Ox 97 11/19/18 04:15 Gastrointestinal (Abdomen) normal bowel sounds, soft, nontender, no hepatosplenomegaly Genitourinary OB Exam Abdomen: + fundal height Fundus: + firm and + relation to umbilicus (below); not tender and not boggy
[2018-11-19] MEDS ORDERED: CALCIUM CARBONATE 500 MG CHEWABLE TAB PO PRN (16:58)
[2018-11-20] MEDS: IBUPROFEN 600 MG TAB PO PRN (05:39)
--- NOTE | 2018-11-20 06:51 | Obstetrical Progress Note ---
Date of Service <Abhijeet Chau MD - Last Filed: 11/20/18 06:51> November 20, 2018 Assessment & Plan <Abhijeet Chau MD - Last Filed: 11/20/18 06:51> (1) Vaginal delivery: Jolynn Agosto is a 28yo who presented at 40+ now s/p PPD#2 - GBS+, O+, RI - Feels well today. Eating well, voiding well, ambulating well. - Pain well controlled with ibuprofen 600mg Q4H PRN. - Routine care - After discharge will have [address] Padilla. Subjective <Abhijeet Chau MD - Last Filed: 11/20/18 06:51> Ambulation: ambulating normally Voiding: no voiding problems Passing Gas:: Yes Diet Tolerance:: regular diet Lochia:: Small Feeding Type:: breast feeding Current Pain Level(1-10): 0 Review of Systems Denies fever, chills, sweats Denies shortness of breath, difficulty breathing, chest pain, palpitations, chest pressure. Denies breast pain. Denies dysuria. Denies headache. Physical Exam <Abhijeet Chau MD - Last Filed: 11/20/18 06:51> Vital Signs (Past 24 Hours) Last Vital Signs Temp 36.8 C 11/19/18 23:10 Pulse 82 11/19/18 23:10 Resp 18 11/19/18 23:10 BP 119/75 11/19/18 23:10 Pulse Ox 97 11/19/18 15:40 General: Alert, oriented. No acute distress. Cardiac: Regular rate and rhythm, no murmurs/rubs/gallops. Respiratory: Clear to auscultation anterior and posteriorly, no wheezes/rales/rhonchi. No increased work of breathing. Symmetrical chest rise. No respiratory distress. Abdomen: Soft, nontender, nondistended. Bowel sounds present. Uterus: Uterine fundus firm, palpable 2cm below umbilicus. Lower Extremities: No lower extremity edema or swelling. No deep calf pain. Leah's negative bilaterally. <Kitty Rausch MD - Last Filed: 11/20/18 07:32> Co-Signing Physician Notes I have reviewed the resident's note and examined the patient myself, and agree with the note above. Resident Activity Tracking <Abhijeet Chau MD - Last Filed: 11/20/18 06:51> Resident Involvement: Resident Care Provided Care Provided: Adult Hospital Medicine
[2018-11-20 07:08] LABS: Hematocrit (blood only) 34.7 % (37-47); Hemoglobin 11.3 g/dL (12.0-16.0)
[2018-11-20] MEDS: SUPERCREAM 0.870% 15 GM JAR EXT PRN (08:57)
[2018-11-20] MEDS: FLUOXETINE HCL 20 MG CAP PO SCH (08:57)
[2018-11-20] MEDS: FERROUS SULFATE 325 MG TAB PO SCH (08:57)
[2018-11-20] MEDS: PRENATAL VITAMIN 1 TAB PO SCH (08:57)
[2018-11-20] MEDS: FAMOTIDINE 20 MG TAB PO SCH (08:57)
[2018-11-20] MEDS: DOCUSATE SODIUM 100 MG CAP PO SCH (09:18)
== END 2018-11-20 11:00 | disposition home or self-care (01) ==
LOC: 4S1 03:32 → 4N 11:39